=== PATIENT | female | born 1990 | race Caucasian/White ===

== ENCOUNTER 2019-11-04 02:17 | Emergency (ER) | payer OTHER ==
[~2019-11-04] VITALS: Ht 165.1 cm; Wt 59.0 kg
[2019-11-04 02:30] VITALS: BP 133/72
[2019-11-04 03:18] LABS: BASOPHILS % (AUTO) 0.5 % (0.0-2.0); HEMATOCRIT 41.8 % (37.0-47.0); HEMOGLOBIN 14.2 G/DL (12.0-16.0); LYMPHOCYTES % (AUTO) 25.2 % (20.0-45.0); MEAN CORPUSCULAR VOLUME 90 FL (80-99); MONOCYTES % (AUTO) 4.9 % (1.0-10.0); NEUTROPHILS % (AUTO) 69.5 % (45.0-75.0); PLATELET COUNT 276 K/UL (150-450); RED BLOOD COUNT 4.64 M/UL (4.20-5.40); RED CELL DISTRIBUTION WIDTH 13.1 % (11.6-14.8); WHITE BLOOD COUNT 6.7 K/UL (4.8-10.8)
[2019-11-04 03:31] LABS: ALANINE AMINOTRANSFERASE 24 U/L (12-78); ALBUMIN 4.4 G/DL (3.4-5.0); ALBUMIN/GLOBULIN RATIO 1.2 (1.0-2.7); ALKALINE PHOSPHATASE 38 U/L (46-116); ANION GAP 12 mmol/L (5-15); ASPARTATE AMINO TRANSFERASE 27 U/L (15-37); BILIRUBIN,TOTAL 0.2 MG/DL (0.2-1.0); BLOOD UREA NITROGEN 12 mg/dL (7-18); CALCIUM 8.6 MG/DL (8.5-10.1); CARBON DIOXIDE 26 MMOL/L (21-32); CHLORIDE 104 MMOL/L (98-107); CREATININE 0.9 MG/DL (0.55-1.30); POTASSIUM 3.6 MMOL/L (3.5-5.1); SODIUM 142 MMOL/L (136-145)
--- NOTE | 2019-11-04 03:37 | Emergency Room Report ---
History of Present Illness General Chief Complaint: Alcohol Intoxication Present Illness HPI 29-year-old female presents the ER dropped off by friends due to alcohol intoxication. Patient was intoxicated on arrival and provided minimal history. Cording to her friends she drank approximately 6 drinks tonight and then developed some nausea and vomiting and became altered. (Dung Oro M.D.) Allergies: Coded Allergies: No Known Allergies (Unverified , 11/04/19) COVID-19 Screening Contact w/high risk pt: No Experienced COVID-19 symptoms?: No COVID-19 Testing performed [facility] MANAGER: No (Dung Oro M.D.) Patient History Last Menstrual Period: UNK Reviewed Nursing Documentation: PMH: Agreed; PSxH: Agreed (Dung Oro M.D.) Nursing Documentation-PMH Past Medical History Deferred: Patient Unconscious (Dung Oro M.D.) Review of Systems All Other Systems: limited - Limited due to alcohol intoxication (Dung Oro M.D.) Physical Exam Vital Signs Date Time Temp Pulse Resp B/P (MAP) Pulse Ox O2 Delivery O2 Flow Rate FiO2 11/04/19 02:26 97.9 96 18 133/72 (92) 99 Room Air 11/04/19 02:30 99 Sp02 EP Interpretation: reviewed, normal General Appearance: no apparent distress, other - Patient sleeping, disheveled , responds to name Head: normocephalic, atraumatic Eyes: bilateral eye PERRL, bilateral eye EOMI ENT: hearing grossly normal, moist mucus membranes Neck: full range of motion, supple Respiratory: lungs clear, normal breath sounds, no rhonchi, no respiratory distress, no retraction, no wheezing Cardiovascular #1: normal peripheral pulses, regular rate, rhythm, no murmur Gastrointestinal: non tender, soft, non-distended, no guarding Neurologic: no focal defects, other - Patient sleeping and appears intoxicated but arousable to voice, moves all extremities equally Skin: normal color, warm/dry (Dung Oro M.D.) Medical Decision Making Diagnostic Impression: Primary Impression: Acute alcoholic intoxication ER Course Patient presented by friends due to nausea and vomiting with probable alcohol intoxication. Patient did drink alcohol tonight. On my exam she was in no distress but did appear intoxicated, did respond to name. No focal deficits. IV established IV fluids and Zofran given. Will observe patient until clinically sober. (Dung Oro M.D.) ER Course Reevaluation 7:05 AM patient is sober, gait stable patient can be discharged (Kee Walker MD) Last Vital Signs Date Time Temp Pulse Resp B/P (MAP) Pulse Ox O2 Delivery O2 Flow Rate FiO2 11/04/19 02:30 96 18 Room Air 99 11/04/19 02:30 97.9 133/72 99 (Dung Oro M.D.) Disposition: HOME, SELF-CARE Condition: Stable Referrals: NOT CHOSEN IPA/,REFERRING (PCP) Dung Oro M.D. Nov 04, 2019 03:37 Kee Walker MD Nov 04, 2019 07:05
[2019-11-04 03:56] VITALS: BP 89/57
[2019-11-04 06:58] VITALS: BP 95/63
== END 2019-11-04 07:00 | disposition home or self-care (01) ==
LOC: EMR 02:44
DX: F10.129 Alcohol abuse with intoxication, unspecified (principal); Y90.8 Blood alcohol level of 240 mg/100 ml or more
CPT/HCPCS: 36415; 80053; 85025; 96361; 96374; 99284; G0480; J2405; J7030